=== PATIENT | female | born 1975 | race Caucasian/White ===

== ENCOUNTER 2020-06-16 20:10 | Emergency (ER) | payer MEDICAID, SELFPAY ==
--- NOTE | ~2020-06-16 | CT_ITS ---
EXAMINATION: CT brain wo con INDICATION: Headache COMPARISON: None TECHNIQUE: Standard unenhanced head CT. The dose-length product (DLP) was 756.67 mGy-cm. The mA was a djusted according to patient size. Iterative reconstruction technique was employed. FINDINGS: There is subarachnoid hemorrhage involving the basal cisterns and sylvian fissure. There is a questionable aneurysm at the tip of the basilar artery. No intracranial mass or infarct are seen. The ventricles are normal. There is no abnormal mass effect or midline shift. The vaughan-white matter d ifferentiation is normal. The orbits are normal. The paranasal sinuses, mastoids and calvarium are no rmal. IMPRESSION: 1. Acute subarachnoid hemorrhage. Recommend emergent neurosurgical evaluation and consider CTA. These findings and recommendations were discussed with Dr. Morgan Velazquez MD in the Emergency Dep artment at 2149 hours on 06/17/2020 by the [facility] Radiologist. Reviewed, dictated and finalized at location A. TIAN BLIND ASSEMBLER IMPRESSION: 1. Acute subarachnoid hemorrhage. Recommend emergent neurosurgical evaluation a nd consider CTA. These findings and recommendations were discussed with Elham Alva in the Emergency Department at 2149 hours on 06/17/2020 by the [facility] Radiolog ist.
[2020-06-16 20:29] VITALS: BP 148/110; PULSE 83; RESP 20; TEMP 36.5; O2SAT 96
[2020-06-16] MEDS: ONDANSETRON INJ 4 MG/2 ML VIAL IV PUSH ×2 (20:53→22:19)
--- NOTE | 2020-06-16 21:11 | ED.HA ---
HPI - Headache General Chief Complaint: Headache Stated Complaint: ambulance Time Seen by Provider: 06/16/20 21:11 Source: patient Mode of arrival: EMS Limitations: no limitations History of Present Illness HPI Narrative: 44-year-old woman comes to the ER by EMS today complaining of an occipital headache that started suddenly while she was having a bowel movement on the toilet. Patient states that she has never had a headache this bad. She denies falls, injuries, recent or past headaches or migraines, history of seizures, fever, cough, weakness, numbness, or tingling. Patient states she usually takes hypertension medication however she has been unable to get it filled since she lost her job a few months ago. MD elicited complaint: headache Pertinent past history: hypertension Onset (ago): hour(s) (1) Onset description: suddenly Location: occipital Severity: severe Quality & Timing: sharp Exacerbating factors: movement of head/neck Relieving factors: nothing Associated symptoms: nausea and vomiting Treatments prior to arrival: none Related Data Home Medications Medication Instructions Recorded Confirmed No Home Medications 06/16/20 06/16/20 Allergies Allergy/AdvReac Type Severity Reaction Status Date / Time No Known Allergies Allergy Verified 06/16/20 20:28 Review of Systems Constitutional: Constitutional: Denies chills, Denies fever(s) and Denies weakness Eyes: Eyes: Denies change in vision and Denies photophobia ENT: Denies dysphagia, Denies nasal congestion and Denies sore throat Cardiovascular: Cardiovascular: Denies chest pain and Denies radiating jaw, neck or arm pain Respiratory: Respiratory: Denies cough, Denies dyspnea and Denies wheezing Gastrointestinal: Gastrointestinal: Denies abdominal pain, Denies diarrhea, Reports nausea and Reports vomiting Genitourinary: Genitourinary: Denies hematuria and Denies dysuria Musculoskeletal: Musculoskeletal: Denies back pain, Denies arthralgias and Denies joint swelling Integumentary/Breasts: Skin/Breast: Denies pruritus, Denies erythema and Denies rash Neurologic: Denies vertigo, Denies dizziness and Denies syncope Hematologic/Lymphatic: Hematologic/Lymphatic: Denies easy bleeding and Denies easy bruising Allergic/Immunologic: Allergic/Immunologic: Denies lip swelling and Denies throat swelling [facility] Past Medical History Medical History (Updated 06/16/20 @ 22:29 by Morgan Velazquez MD) Hypertension Surgical History Surgical History (Updated 06/16/20 @ 21:37 by Morgan Velazquez MD) H/O knee surgery Social History Social History Smoking status: Former smoker Alcohol intake: never Substance use: never Living arrangements: alone Exam Const: Nutritional Appearance: obese Limitations: no limitations HENMT: Ears: external ears normal, TM's normal bilaterally and EAC's normal General nose exam: Normal nares present Face and sinus: normal facial exam Throat: posterior oropharynx normal and uvula midline Eyes: Conjunctivae: conjunctivae normal Pupils: Equal, round and reactive pupils present EOM: EOMs intact bilaterally Resp: Effort & Inspection: normal respiratory effort and not labored Auscultation: clear to auscultation bilaterally, no rales, no rhonchi and no wheezes Cardio: Rate: regular rate Rhythm: regular rhythm Heart sounds: no murmurs Skin: General skin exam: normal color, no jaundice and no pallor Rashes: no rashes Neuro: General: patient oriented x3, moves all extremities, no focal motor deficits and CN's II-XI intact bilaterally Speech: normal speech Gait exam (Neuro): Normal gait present Extrem: General: normal to inspection and no clubbing, cyanosis or edema Psych: Appearance: grossly normal Mental Status: mental status grossly normal Affect: normal affect Attitude: cooperative Thought content: Yes Normal thought content present Course
--- NOTE | 2020-06-16 21:16 | ECG_ITS ---
Measurements Intervals [place] Run Rate: 72 P: 56 GA: 160 QRS: 29 QRSD: 101 T: 21 QT: 373 QTc: 410 Interpretive Statements SINUS RHYTHM WITH SINUS ARRHYTHMIA MINIMAL Q WAVES- HIGH LATERAL LEADS BASELINE ARTIFACT- I, II, AVR, AVL, V6 BORDERLINE ECG Electronically Signed On 06-17-2020 12:28:08 JOB LITHOGRAPHER by Trino Hamm D.O.
[2020-06-16] MEDS: HYDROmorphone HCL INJ (*CRX) 2 MG/ML VIAL 1 MG IV PUSH (21:21)
--- NOTE | 2020-06-16 22:03 | PC.NURSE ---
ERP discussed radiology CT reading c pt. Pt. remains A&Ox3, and wanting to go to [facility] for care.
--- NOTE | 2020-06-16 22:33 | PC.NURSE ---
Call back from [facility] for report, awaiting call back c ICU bed info and for nue report. Pt. resting, VSS, remains A&Ox3.
[2020-06-16] MEDS: TRANEXAMIC ACID 1,000 MG/10 ML AMPUL 1000 MG IV PUSH (22:34)
[2020-06-16] MEDS: SODIUM CHLORIDE 0.9% IV 100 ML 400 ML (22:42)
[2020-06-16] MEDS: levETIRAcetam 1000MG/NACL100ML 1,000 MG/100 ML BAG 400 MG IVPB (22:43)
[2020-06-16 22:46] LABS: Basophils Absolute Auto 0.03 K/mm3 (0.00-0.10); Basophils Percent Auto 0.4 % (0.0-1.0); Eosinophils Percent Auto 1.2 % (1.0-6.0); Hematocrit 44.4 % (35.0-49.0); Hemoglobin 11.8 g/dL (12.0-15.0); Immature Granulocyte Absolute 0.05 K/mm3 (0.00-0.00); Immature Granulocyte Percent A 0.6 % (0.0-0.0); Immature Platelet Fraction Pct 8.9 % (1.0-7.0); Lymphocytes Absolute Auto 1.37 K/mm3 (1.10-4.50); Lymphocytes Percent Auto 16.1 % (18.0-42.0); Mean Corpuscular HGB Conc 26.6 g/dL (32.0-36.0); Mean Corpuscular Hemoglobin 20.7 pg (27.0-31.0); Mean Corpuscular Volume 77.8 fL (78.0-102.0); Mean Platelet Volume 11.4 fl (9.2-11.8); Monocytes Percent Auto 4.7 % (2.0-11.0); Neutrophils Absolute Auto 6.6 K/mm3 (1.7-7.2); Platelet Count Result 220 K/mm3 (150-420); Red Blood Count 5.71 M/mm3 (4.20-5.40); Red Cell Distribution Width 19.2 % (11.6-14.4); White Blood Count 8.5 K/mm3 (4.8-10.8)
[2020-06-16 22:58] LABS: INR 0.9; Partial Thromboplastin Time 28.7 SEC (23.90-30.70); Prothrombin Time 10.4 Seconds (9.50-12.10)
[2020-06-16 23:01] LABS: Alanine Aminotransferase 29 U/L (14-59); Albumin Level 3.4 g/dL (3.4-5.0); Alkaline Phosphatase 127 U/L (46-116); Anion Gap 6 mmol/L (8-16); Aspartate Amino Transferase 28 U/L (15-37); Bilirubin,Total 0.4 mg/dL (0.00-1.00); Blood Urea Nitrogen 14 mg/dL (7-18); CRP 4.3 mg/dL (0.0-0.9); Calcium 8.7 mg/dL (8.5-10.1); Carbon Dioxide 31 mmol/L (21-32); Chloride 100 mmol/L (98-108); Estimated CRCL calculation 127 ml/min; Estimated Glomerular Filt Rate > 60; Glucose 152 mg/dL (70-99); Osmolality Calculated 287 mOsm/kg (285-295); Potassium 3.5 mmol/L (3.5-5.1); Sodium 137 mmol/L (136-145); Total Protein 8.2 g/dL (6.4-8.2); Troponin I 8.1 ng/L (0.00-60.4)
[2020-06-16 23:22] LABS: SARS-CoV-2 Ag Negative (Negative)
[2020-06-16 23:38] VITALS: BP 160/74; PULSE 73; RESP 18; O2SAT 97
[2020-06-16 23:49] VITALS: BP 160/89; PULSE 73; RESP 20; TEMP 36.5; O2SAT 98
--- NOTE | 2020-06-16 23:58 | PC.NURSE ---
Report given to Sam for transfer, call paged to [facility] for transfer.
[2020-06-17] MEDS: HYDROmorphone HCL INJ (*CRX) 2 MG/ML VIAL 1 MG IV PUSH (00:08)
== END 2020-06-17 00:26 | disposition short-term general hospital (02) ==
PROVIDERS: Emergency Provider Emergency Medicine
DX: I60.9 Nontraumatic subarachnoid hemorrhage, unspecified (principal); I10 Essential (primary) hypertension
CPT/HCPCS: 36415; 70450; 80053; 84484; 85025; 85055; 85610; 85730; 86140; 87426; 93005; 96374; 96375; 96376; 99285; C9803; J1170; J1953; J2405

== ENCOUNTER 2022-02-11 16:58 | Emergency (ER) | payer OTHER, SELFPAY ==
--- NOTE | ~2022-02-11 | XR_ITS ---
EXAM: XR wrist RT min 3V DATE: 02/11/2022 17:26 HISTORY: fall pain @ all over wrist . COMPARISON: None available. FINDINGS: Normal mineralization. Comminuted, predominantly transverse fracture of the distal right r adius, with mild posterior angulation. Comminuted ulnar styloid fracture. No lytic or blastic lesion. Joint spaces and physes are maintained. No erosion or periosteal change. Soft tissue swelling about the wrist. IMPRESSION: Mildly comminuted fractures of the distal right radius with mild posterior angulation. Co mminuted right ulnar styloid fracture. Reviewed, dictated and finalized at location K. IMPRESSION: Mildly comminuted fractures of the distal right radius with mild po sterior angulation. Comminuted right ulnar styloid fracture.
[2022-02-11 17:20] VITALS: BP 159/79; PULSE 73; RESP 22; TEMP 36.2; O2SAT 96
[2022-02-11] MEDS: IBUPROFEN 400 MG TABLET 800 MG PO (17:50)
--- NOTE | 2022-02-11 17:53 | PC.NURSE ---
On 02/11/22, the student, [ diane melvin ], provided care and completed [facility] documentation on this patient. I have reviewed the student's documentation and agree with the findings.
--- NOTE | 2022-02-11 18:00 | PC.NURSE ---
On 02/11/22, the student, [ diane melvin], provided care and completed [facility] documentation on this patient. I have reviewed the student's documentation and agree with the findings.
--- NOTE | 2022-02-11 18:59 | ED.UPPEXIN ---
HPI - Extremity Injury (Upper) General Chief Complaint: Extremity Injury, Upper Stated Complaint: right wrist pain Time Seen by Provider: 02/11/22 17:02 Source: patient and RN notes reviewed Mode of arrival: wheelchair Limitations: no limitations History of Present Illness complaint: injury to: right and wrist Onset (ago): hour(s) (1) Other injuries: none Place: outdoors Severity: moderate Severity scale (1-10): 7 Relieving factors: immobilization Exacerbating factors: movement of extremity Context: fall Associated symptoms: denies other symptoms Treatments prior to arrival: bandage Related Data Allergies Allergy/AdvReac Type Severity Reaction Status Date / Time No Known Allergies Allergy Verified 02/11/22 17:56 Review of Systems Review of Systems: All systems reviewed & are unremarkable except as noted in HPI and below Constitutional: Constitutional: Reports no additional constitutional complaints Eyes: Eyes: Reports no additional eye complaints ENT: Reports system reviewed and no additional complaints, except as documented Cardiovascular: Cardiovascular: Reports no additional cardiovascular complaints Respiratory: Respiratory: Reports no additional respiratory complaints Gastrointestinal: Gastrointestinal: Reports no additional gastrointestinal complaints Genitourinary: Genitourinary: Reports no additional female genitourinary complaints Musculoskeletal: Musculoskeletal: Reports arthralgias Integumentary/Breasts: Skin/Breast: Reports system reviewed and no additional complaints, except as docu Neurologic: Reports system reviewed and no additional complaints, except as documented Psychiatric: Psychiatric: Reports no additional psychiatric complaints Endocrine: Endocrine: Reports no additional endocrine complaints Hematologic/Lymphatic: Hematologic/Lymphatic: Reports no additional hematologic/lymphatic complaints Allergic/Immunologic: Allergic/Immunologic: Reports no additional allergic/immunologic complaints PMFSH Past Medical History Medical History Fracture of wrist Hypertension Surgical History Surgical History (Updated 06/16/20 @ 21:37 by Morgan Velazquez MD) H/O knee surgery Social History Social History Smoking status: Former smoker Alcohol intake: never Substance use: never Exam Const: General: no acute distress Nutritional Appearance: well nourished Orientation/consciousness: patient oriented x3 Limitations: no limitations HENMT: Head: normal to inspection Ears: external ears normal, TM's normal bilaterally and EAC's normal General nose exam: Normal external nose present and Normal nares present Face and sinus: normal facial exam and sinuses nontender Mouth: Yes Normal oral and palatal mucosa present and Yes moist mucous membranes Teeth and gingiva: dentition normal Throat: posterior oropharynx normal Eyes: Conjunctivae: conjunctivae normal Pupils: Equal, round and reactive pupils present EOM: EOMs intact bilaterally Neck: Neck: normal visual inspection, no lymphadenopathy and no meningeal signs Chest: Chest palpation & inspection: normal inspection of the chest Resp: Effort & Inspection: normal respiratory effort Auscultation: clear to auscultation bilaterally Cardio: Rate: regular rate Rhythm: regular rhythm GI: GI Palp: Yes Soft to palpation and No Tenderness to palpation present (GI) Auscultation: normal bowel sounds : General: Yes bladder normal to palpation and Yes no CVA tenderness Bimanual exam- vagina & uterus: bladder normal to palpation Back/Spine/Pelvis: Back: no CVA tenderness Skin: General skin exam: normal color Rashes: no rashes Wounds: no wounds Neuro: General: patient oriented x3, moves all extremities, no meningeal signs, no focal motor deficits and CN's II-XI intact bilaterally Cranial nerves: Yes Equal, round and
[2022-02-11 19:17] VITALS: BP 156/80; PULSE 73; RESP 20; O2SAT 98
--- NOTE | 2022-02-11 19:17 | PC.NURSE ---
pt refused MS states the pain is gone with motrin and splint splint applied without difficult
[2022-02-11 19:18] VITALS: TEMP 36.6
== END 2022-02-11 19:26 | disposition home or self-care (01) ==
PROVIDERS: Emergency Provider Emergency Medicine
DX: S62.101A Fracture of unspecified carpal bone, right wrist, initial encounter for closed fracture (principal); W19.XXXA Unspecified fall, initial encounter
CPT/HCPCS: 29125; 73110; 99284; A4565; A9270

== ENCOUNTER 2024-12-26 14:30 | Emergency (ER) | payer OTHER, SELFPAY ==
[2024-12-26] VITALS (24 sets, daily range): BP systolic 123–244; BP diastolic 81–210; PULSE 68–134; RESP 18–26; TEMP 36.7; O2SAT 90–98
--- NOTE | ~2024-12-26 | XR_ITS ---
EXAMINATION: XR chest 1V portable Exam Date/Time: 12/26/2024 14:50 CDT HISTORY: Shortness of breath Comparison: None. RESULT: Lines, tubes, and devices: None. Lungs and pleura: No focal consolidation, pleural effusion, or pneumothorax. Mild diffuse reticular opacities. Cardiomediastinal silhouette: Increased cardiothoracic ratio. Rounded morphology of the heart. Possi ble air-fluid level over the central mediastinum. Other: No acute osseous or upper abdominal finding. IMPRESSION: Pericardial effusion versus cardiomegaly. Possible hiatal hernia. Mild interstitial edema. Reviewed, dictated and finalized at location K. IMPRESSION: Pericardial effusion versus cardiomegaly. Possible hiatal hernia. Mild intersti tial edema.
--- OUTSIDE RECORDS SUMMARY | 2024-12-26 14:34 | XMS_ITS | Continuity of Care Document ---
Author Organization [facility] Address [address] [id number] [address] Phone Care Team Providers [employer] Controls Engineer Name Role Phone Coordinator, Care Unavailable Unavailable Procedures Procedure Date Community Health Worker Patient Face To Face Advance Directives Directive Yes / No Effective Date File Name No Information Encounters Encounter Description Practice Location Reason(s) For Visit Diagnoses Date Provider Providers Copied on Encounter [facility], [id number], [id number], [place] tel:[phone] Family Medicine F1 No Information 0 0 Coordinator Care. [address], [place], [id number], [place]. tel:[phone] [facility], [id number], [id number], [place] tel:[phone] Family Medicine F1 Extreme povertyInsufficie nt Social Insurance or Welfare Support 201 9 Coordinator Care. [address], [place], [id number], [place]. tel:[phone] Referring Provider: Néstor watson, [address] [place], [address] . tel:[phone] Family History Family Member Type Diagnosis Age At Onset No Information Payers Payer name Insurance type Covered republican ID Authoriza tion(s) No Information Social History Type Description Quantity Date Captured Comments Sex Female Smoking Status No Information Chief Complaint And Reason For Visit No Information Reason For Referral Reason For Referral No Information Plan Of Treatment Date Type Action Status Referral Ordered: Referrals: Location: [facility] ordered History Of Present Illness Encounter Date Complaint History Of Prese nt Illness No Information Functional Status Date Functional Assessmen t No Information Instructions Date Instruction Additional Infor mation No Information Assessments Type Assessment Date No Information Patient Care Teams Name Effective Dates (start - stop) Status Members No Information
--- OUTSIDE RECORDS SUMMARY | 2024-12-26 14:34 | XMS_ITS | Clinical Summary ---
Author Organization [facility] Address [address] [place] [id number] Care Team Providers Care Head Cook Name Role Phone None, Provider MD Primary Care Provider Unavaila ble Allergies No known active allergies Social History Tobacco Use Types Packs/Day Years Used Date Smoking Tobacco: Never Assessed Comments Unknown Sex and Gender Information Value Date Recorded Sex Assigned at Female 08/15/2024 3:34 PM HEAD ESTHETICIAN Legal Sex Female 1:55 PM HEAD ESTHETICIAN Gender Identity Not on file Sexual Orientation Not on file Last Filed Vital Signs Vital Sign Reading Time Taken Comments Blood Pressure 140/109 08/15/2024 2:00 PM HEAD ESTHETICIAN Pulse 61 08/15/2024 2:00 PM HEAD ESTHETICIAN Temperature 36.8 C (98.2 F) 08/15/2024 2:00 PM HEAD ESTHETICIAN Respiratory Rate 18 08/15/2024 2:00 PM HEAD ESTHETICIAN Oxygen Saturation 94% 08/15/2024 2:00 PM HEAD ESTHETICIAN Inhaled Oxygen Concentration - - Weight 165.6 kg (365 lb) 08/15/2024 2:00 PM HEAD ESTHETICIAN Height 175.3 cm (5' 9) 08/15/2024 2:00 PM HEAD ESTHETICIAN Body Mass Index 53.9 08/15/2024 2:00 PM HEAD ESTHETICIAN Plan of Treatment Health Maintenance Due Date Last Done Comments Cervical Cancer Screening Pa p Smear (Age 30 to 64) Every 3 Years 1974 Colorectal Cancer Screening Colonoscopy (10 Years) 1974 Annual Physical 1977 Hepatitis C 1992 DTaP, Tdap and Td Vaccines ( 1 - Tdap) 1993 Hepatitis B Vaccines (1 of 3 - 19+ 3-dose series) 1993 Cervical Cancer Screening Pa p with HPV Testing (Age 30 to 64) Every 5 Years 2004 Cervical Cancer Screening with HPV 2004 Mammogram Screening 2014 COVID-19 Vaccine (1 - 2023-2 5 season) 2024 Pneumococcal Vaccine: 50+ Ye ars (1 of 1 - PCV) 2024 Zoster Vaccines (1 of 2) 2024 Meningococcal B Vaccine Aged Out No l onger eligible based on patient's age to complete this topic Meningococcal Vaccine Aged Out No handy denzel eligible based on patient's age to complete this topic RSV Immunizations Under 20 Months Aged Out No longer eligible based on patient's age to complete this topic Insurance [address] [address] Care Teams Head Cook Relationship Specialty Start Date End Date None, Provider, PCP - General UNKNOWN PHYSICIAN SPECIALTY 08/15/24
--- NOTE | 2024-12-26 14:36 | ED_ITS ---
HPI - General Adult General Chief complaint: Abdominal Pain Stated complaint: bloated Time Seen by Provider: 12/26/24 14:36 Source: patient and family Mode of arrival: ambulatory Limitations: no limitations History of Present Illness HPI narrative: 49 years old white female came to the ED by private car with family member complaining of feeling like her belly is swollen, for 1 week then started having trouble breathing with exertion for the last 3 days. She denies any fever, chills, nausea, vomiting, chest pain, back pain or headache. Last time was seen by a physician over 5 years ago, patient does not take medicine at home, does not smoke or drink or use drugs. 188 kg Related Data Home Medications ?Medication ?Instructions ?Recorded ?Confirmed ?Last Taken ?Type No Home Medications 12/26/24 12/26/24 Unknown History Allergies Allergy/AdvReac Type Severity Reaction Status Date / Time No Known Allergies Allergy Verified 12/26/24 14:42 Review of Systems 2 Review of Systems: All systems reviewed & are unremarkable except as noted in HPI and below PMFSH Past Medical History Medical History Fracture of wrist Hypertension Surgical History Surgical History H/O knee surgery Social History Social History Smoking status: Former smoker Alcohol intake: never Substance use: never Living arrangements: alone Exam 2 Narrative: General appearance: Well-developed, well-nourished Skin: Normal color edematous skin of the abdomen below the level of the umbilicus, peau d,orange, 1+ EDEMA LOWER EXTREMITY BILATERALLY Head: Normocephalic, nontraumatic Eyes: Clear conjunctiva ENT: Oropharynx normal, ears normal, nose normal Neck: Supple, nontender Chest and respiratory: Airway patent, no respiratory distress, no accessory muscle use Heart: IRREGULAR IRREGULARITY, TACHYCARDIA Abdomen: Soft, nontender, no organomegaly, quiet bowel sounds Vascular: Normal peripheral pulses, normal capillary refill. Musculoskeletal: Normal range of motion, nontender back Neurologic: Alert and oriented ?3, STAFF RN is normal as tested, no gross motor deficit Course Vital Signs Vital signs: Vital Signs Temperature 36.7 C 12/26/24 14:31 Pulse Rate 68 12/26/24 14:31 Respiratory Rate 22 H 12/26/24 14:31 Blood Pressure 158/129 H 12/26/24 14:31 Pulse Oximetry 95 12/26/24 14:31 Oxygen Delivery Room Air 12/26/24 14:31 Temperature 36.7 C 12/26/24 14:31 Pulse Rate 123 H 12/26/24 17:18 Respiratory Rate 20 12/26/24 16:30 Blood Pressure 123/112 H 12/26/24 17:18 Pulse Oximetry 97 12/26/24 16:30 Oxygen Delivery Nasal Cannula 12/26/24 16:30 Oxygen Flow Rate 2 12/26/24 16:30 Medical Decision Making MDM Narrative Medical decision making narrative: PATIENT CAME TO THE ED WITH SHORTNESS OF BREATH, SWELLING ABDOMEN VITAL SIGNS SHOWING BLOOD PRESSURE 158/129, RESPIRATORY RATE 22, HEART RATE IS 130 , OXYGENATION ON 2 L 95% PHYSICAL EXAMINATION SHOWING MORBIDLY OBESE PATIENT, TACHYCARDIA IRREGULAR IRREGULARITY, TRACE EDEMA LOWER EXTREMITY BILATERALLY, LOWER ABDOMINAL SKIN EDEMA BLOOD WORKUP TODAY INCLUDES CBC, CMP, COAGS, TROPONIN, PRO BNP SHOWED PRO BMP 2800, AST 99, ALT 55, CALCIUM 8.0 ABG ON ROOM AIR SHOWED OXYGEN SATURATION OF 83.4 CHEST X-RAY SHOWED INTERSTITIAL PULMONARY EDEMA, CARDIOMEGALY EKG ON ARRIVAL SHOWED AFIB WITH RVR CARDIZEM IV BOLUS AND DRIP STARTED LASIX 60 MG IV GIVEN LOVENOX 150 MG SUBQ GIVEN DIAGNOSIS AFIB WITH RVR, CHF TRANSFERRED TO [facility] DISCUSSED WITH THE HOSPITALIST DR. ZUNIGA Differential Diagnosis Differential Diagnosis: ABOVE Vital Signs Vital Signs: Vital Signs Temperature 36.7 C 12/26/24 14:31 Pulse Rate 68 12/26/24 14:31 Respiratory Rate 22 H 12/26/24 14:31 Blood Pressure 158/129 H 12/26/24 14:31 Pulse Oximetry 95 12/26/24 14:31 Oxygen Delivery Room Air 12/26/24 14:31 Temperature 36.7 C 12/26/24 14:31 Pulse Rate 123 H 12/26/24 17:18 Respiratory Rate 20 12/26/24 16:30 Blood Pressure 123/112 H 12/26/24 17:18 Pulse Oximetry 97 12/26/24 16:30 Oxygen Delivery Nasal Cannula 12/26/24 16:30 Oxygen Flow Rate 2 12/26/24 16:30 Lab Data 12/26/24 14:57 12/26/24 14:57 Labs: Lab Results 12/26/24 12/26/24 12/26/24 Range/Units 14:49 14:57 15:33 WBC 7.4 (4.8-10.8) K/mm3 RBC 5.59 H (4.20-5.40) M/mm3 Hgb 11.3 L (12.0-15.0) g/dL Hct 44.3 (35.0-49.0) % MCV 79.2 (78.0-102.0) fL MCH 20.2 L (27.0-31.0) pg MCHC 25.5 L (32-36) g/dL RDW 19.7 H (11.6-14.4) % Plt Count 223 (150-420) K/mm3 MPV Not Reportable Immature Gran % (Auto) 0.4 H (0.0-0.0) % Neut % (Auto) 73.5 H (50.0-70.0) % Lymph % (Auto) 16.1 L (18.0-42.0) % Stone % (Auto) 8.2 (2.0-11.0) % Eos % (Auto) 0.9 L (1.0-6.0) % Baso % (Auto) 0.9 (0.0-1.0) % Lymph # (Auto) 1.20 (1.10-4.50) K/mm3 Stone # (Auto) 0.61 (0.10-0.90) K/mm3 Eos # (Auto) 0.07 (0.02-0.50) K/mm3 Baso # (Auto) 0.07 (0.00-0.10) K/mm3 Abs Immat Gran (auto) 0.03 H (0.00-0.00) K/mm3 Absolute Neuts (auto) 5.46 (1.70-7.20) K/mm3 Absolute Nucleated RBC 0.09 H (0.00-0.00) K/mm3 Nucleated RBC % 1.2 H (0-0.0) % % Immature Plt Fraction 9.3 H (1.0-7.0) % PT 12.6 H (9.50-12.1) Seconds INR 1.2 APTT 21.2 L (23.9-30.70) Sec Sodium 139 (137-145) mmol/L Potassium 4.0 (3.4-5.0) mmol/L Chloride 101 (98-107) mmol/L Carbon Dioxide 34 H (22-30) mmol/L Anion Gap 4 (4-12) mmol/L BUN 12 (7-17) mg/dL Creatinine 0.92 (0.7-1.0) mg/dL Estim Creat Clear Calc 117 ml/min Estimated GFR > 60 (59 - ) Glucose 105 (65-110) mg/dL Calculated Osmolality 287 (285-295) mOsm/kg Calcium 8.0 L (8.4-10.2) mg/dL Total Bilirubin 1.4 H (0.2-1.3) mg/dL AST 99 H (14-36) U/L ALT 55 H (6-35) U/L Alkaline Phosphatase 100 (38-126) U/L Troponin I < 0.012 (0.000-0.034) ng/mL NT-Pro-B Natriuret Pep 2800 H (19.9-100) pg/mL Total Protein 6.8 (6.3-8.2) g/dL Albumin 3.6 (3.5-5.1) g/dL Lipase 44 (23-300) U/L TSH 2.980 (0.465-4.680) uIU/mL Urine Color Yellow (Yellow) Urine Appearance Clear (Clear) Urine pH 6.0 (5.0-8.0) Ur Specific Ute 1.020 (1.010-1.020) Urine Protein 2+ H (Negative) Urine Glucose (UA) Negative (Negative) Urine Ketones Negative (Negative) Ur Blood (Man) Trace-intact H (Negative) Urine Nitrate Negative (Negative) Urine Bilirubin Negative (Negative) Urine Urobilinogen 4.0 H (0.2-1.0) mg/dL Leukocyte Esterase Rfl Trace H (Negative) JOAQUINA/UL Urine RBC 0-2 (0-2) /hpf Urine WBC 4-6 H (0-3) /hpf Ur Squamous Epith Cells Many H (Few) /hpf Urine Bacteria 3+ H (None) /hpf Hyaline Casts 1-2 (None) /lpf Urine Test Negative ABG Data ABG results: 12/26/24 14:59 Puncture Site Right radial ABG pH 7.37 ABG pCO2 53.8 H ABG pO2 51.8 L ABG HCO3 30.5 H ABG O2 Saturation 83.4 L ABG Base Excess 4.1 H Oxyhemoglobin 81.8 L O2 Delivery Device Room air O2 Liters/Min Not Reportable Imaging Data Radiologist's impression: Impressions Chest X-Ray 12/26/24 15:07 IMPRESSION: Pericardial effusion versus cardiomegaly. Possible hiatal hernia. Mild interstitial edema. ECG Data EKG #1: Attestation: I personally reviewed and interpreted this ECG as follows: ECG completion date: 12/26/24 Interpretation: AFIB WITH RVR AT 126 MINUTE VOLTAGE IN PRECORDIAL LEADS ABNORMAL RHYTHM EKG, NO OLD EKG AVAILABLE FOR COMPARISON Critical Care Time Critical Care Time Critical Care Time: Yes Total Critical Care Time: 30 Discharge Plan Discharge Clinical Impression: Atrial fibrillation with rapid ventricular response, CHF (congestive heart failure) Patient Disposition: Acute Care Hospital Condition: Stable Patient Language: Vietnamese Prescriptions: No Action No Home Medications Follow-up/Referrals: UNKNOWN,DOCTOR [Primary Care Provider] -
--- NOTE | 2024-12-26 14:47 | ECG_ITS ---
Test Date: 2024-12-26 15:17:50 Measurements Intervals Downs Rate: 126 P: 0 UT: 0 QRS: 78 QRSD: 89 T: 33 QT: 288 QTc: 418 Interpretive Statements ATRIAL FIBRILLATION WITH RAPID VENTRICULAR RESPONSE LOW QRS VOLTAGE IN PRECORDIAL LEADS [QRS DEFLECTION < 1.0 mV IN CHEST LEADS] POOR R-WAVE PROGRESSION ABNORMAL RHYTHM ECG No previous ECG available for comparison Electronically Signed On 12-27-2024 10:22:36 CDT by Roge Perea M.D.
[2024-12-26 15:04] LABS: HCO3 ABG 30.5 mmol/L (23-29); Oxygen Saturation ABG 83.4 % (95-97); PCO2 ABG 53.8 mmHg (35-45); PO2 ABG 51.8 mmHg (80-90)
[2024-12-26 15:05] LABS: Modified Allen's Test Pass; Site Drawn RIGHT RADIAL
--- OUTSIDE RECORDS SUMMARY | 2024-12-26 15:18 | XMS_ITS | Clinical Summary ---
Author Organization [facility] Address [address] [place] [address] Care Team Providers Care Cargo Service Agent Name Role Phone None, Provider MD Primary Care Provider Unavaila ble Allergies No known active allergies Social History Tobacco Use Types Packs/Day Years Used Date Smoking Tobacco: Never Assessed Comments Unknown Sex and Gender Information Value Date Recorded Sex Assigned at Female 08/15/2024 3:34 PM [employer] Legal Sex Female 1:55 PM [employer] Gender Identity Not on file Sexual Orientation Not on file Last Filed Vital Signs Vital Sign Reading Time Taken Comments Blood Pressure 140/109 08/15/2024 2:00 PM [employer] Pulse 61 08/15/2024 2:00 PM [employer] Temperature 36.8 C (98.2 F) 08/15/2024 2:00 PM [employer] Respiratory Rate 18 08/15/2024 2:00 PM [employer] Oxygen Saturation 94% 08/15/2024 2:00 PM [employer] Inhaled Oxygen Concentration - - Weight 165.6 kg (365 lb) 08/15/2024 2:00 PM [employer] Height 175.3 cm (5' 9) 08/15/2024 2:00 PM [employer] Body Mass Index 53.9 08/15/2024 2:00 PM [employer] Plan of Treatment Health Maintenance Due Date [...] patient's age to complete this topic Insurance [address] [address] [place] [id number] Care Teams Cargo Service Agent Relationship Specialty Start Date End Date None, Provider, PCP - General UNKNOWN PHYSICIAN SPECIALTY 08/15/24
--- OUTSIDE RECORDS SUMMARY | 2024-12-26 15:18 | XMS_ITS | Continuity of Care Document ---
Author Organization [facility] Address [id number] [address] Phone Care Team Providers Care Manager Adult Name Role Phone Coordinator, Care Unavailable Unavailable Procedures Procedure Date Community Health Worker Patient Face To Face Advance Directives Directive Yes / No Effective Date File Name No Information Encounters Encounter Description Practice Location Reason(s) For Visit Diagnoses Date Provider Providers Copied on Encounter [facility], [id number], [id number], [place] tel:[phone] Family Medicine F1 No Information 0 0 Coordinator Care. [address], [place], [id number], [place]. tel:[phone] [facility], [id number] [id number], [place] tel:[phone] Family Medicine F1 Extreme povertyInsufficie nt Social Insurance or Welfare Support 201 9 Coordinator Care. [address], [place], [id number], [place]. tel:[phone] Referring Provider: Néstor watson, [address] [place], [address] . tel:[phone] Family History Family Member Type Diagnosis Age At Onset No Information Payers Payer name Insurance type Covered green party ID Authoriza tion(s) No Information Social History Type Description Quantity Date Captured Comments Sex Female Smoking Status No Information Chief Complaint And Reason For Visit No Information Reason For Referral Reason For Referral No Information Plan Of Treatment Date Type Action Status Referral Ordered: Referrals: Location: [facility] ordered History Of Present Illness Encounter Date Complaint History Of Prese nt Illness No Information Functional Status Date Functional Assessmen t No Information Instructions Date Instruction Additional Infor mation No Information Assessments Type Assessment Date No Information Patient Care Teams Name Effective Dates (start - stop) Status Members No Information
[2024-12-26 15:19] LABS: INR 1.2; Partial Thromboplastin Time 21.2 Sec (23.9-30.70); Prothrombin Time 12.6 Seconds (9.50-12.1)
[2024-12-26 15:35] LABS: Hematocrit 44.3 % (35.0-49.0); Hemoglobin 11.3 g/dL (12.0-15.0); Immature Granulocyte Percent A 0.4 % (0.0-0.0); Immature Platelet Fraction Pct 9.3 % (1.0-7.0); Lymphocytes Absolute Auto 1.20 K/mm3 (1.10-4.50); Mean Corpuscular HGB Conc 25.5 g/dL (32-36); Mean Corpuscular Hemoglobin 20.2 pg (27.0-31.0); Mean Corpuscular Volume 79.2 fL (78.0-102.0); Nucleated Red Blood Cells Absolute Auto 0.09 K/mm3 (0.00-0.00); Nucleated Red Blood Cells Perc 1.2 % (0-0.0); Platelet Count Result 223 K/mm3 (150-420); Red Blood Count 5.59 M/mm3 (4.20-5.40); White Blood Count 7.4 K/mm3 (4.8-10.8)
[2024-12-26 15:41] LABS: Alanine Aminotransferase 55 U/L (6-35); Albumin Level 3.6 g/dL (3.5-5.1); Alkaline Phosphatase 100 U/L (38-126); Anion Gap 4 mmol/L (4-12); Aspartate Amino Transferase 99 U/L (14-36); Bilirubin,Total 1.4 mg/dL (0.2-1.3); Blood Urea Nitrogen 12 mg/dL (7-17); Calcium 8.0 mg/dL (8.4-10.2); Carbon Dioxide 34 mmol/L (22-30); Chloride 101 mmol/L (98-107); Estimated CRCL calculation 117 ml/min; Estimated Glomerular Filt Rate > 60; Glucose 105 mg/dL (65-110); Lipase 44 U/L (23-300); Osmolality Calculated 287 mOsm/kg (285-295); Potassium 4.0 mmol/L (3.4-5.0); Sodium 139 mmol/L (137-145); Total Protein 6.8 g/dL (6.3-8.2)
[2024-12-26 15:51] LABS: NT Pro B Type Natriuretic Pept 2800 pg/mL (19.9-100)
[2024-12-26 15:54] LABS: Troponin I < 0.012 ng/mL (0.000-0.034)
[2024-12-26 15:56] LABS: Add Urine Microscopic? YES; Appearance Urine Clear (Clear); Glucose Urine UA Negative (Negative); Leukocyte Esterase Ur Trace LEU/UL (Negative); Nitrate Urine Negative (Negative); Specific Grav Ur 1.020 (1.010-1.020)
[2024-12-26 15:59] LABS: Pregnancy On Board Control Positive
[2024-12-26] MEDS: ENOXAPARIN 120 MG, ENOXAPARIN 30 MG 150 MG SUB-Q (16:14)
[2024-12-26] MEDS: dilTIAZem 100 MG/100 ML 100 MG/100 ML BAG IV CONT (17:18)
[2024-12-26 17:59] LABS: Thyroid Stimulating Hormone 2.980 uIU/mL (0.465-4.680)
[2024-12-26] MEDS: FUROSEMIDE INJ 40 MG/4 ML VIAL 60 MG IV PUSH (18:35)
--- NOTE | 2024-12-26 19:15 | PC.NURSE ---
patient awake, alert and up to bathroom via wheelchair per wireless cellular technician. patient report received from VIET Miller for continuation of care on weight shifter. patient awaiting EMS transport to inpatient transfer facility [facility].
--- NOTE | 2024-12-26 19:45 | PC.NURSE ---
pt to bathroom via wheelchair per hvac service technician. given sandwich and fruit for dinner per ERP okay.
--- NOTE | 2024-12-29 12:56 | PC.NURSE ---
preliminary blood cultures x2 reviewed. no growth to date
--- NOTE | 2024-12-30 12:47 | PC.NURSE ---
preliminary blood cultures x2 reviewed. no growth to date
--- NOTE | 2024-12-31 12:09 | PC.NURSE ---
PRELIMINARY BLOOD CULTURE REPORT; NO GROWTH IN 48 HOURS.
--- NOTE | 2025-01-02 15:49 | PC.NURSE ---
final blood culture results x2: no growth after 5 days
--- NOTE | 2025-01-03 12:45 | PC.NURSE ---
final blood cultures x2 reviewed. no growth after 5 days.
== END 2024-12-26 21:02 | disposition short-term general hospital (02) ==
PROVIDERS: Emergency Provider Emergency Medicine
DX: I48.20 Chronic atrial fibrillation, unspecified (principal); I11.0 Hypertensive heart disease with heart failure; I50.9 Heart failure, unspecified; Z87.891 Personal history of nicotine dependence
CPT/HCPCS: 36415; 36600; 71045; 80053; 81001; 81025; 82805; 83690; 83880; 84443; 84484; 85025; 85055; 85610; 85730; 93005; 96365; 96366; 96372; 96375; 99285; J1163; J1650; J1938

== ENCOUNTER 2025-01-11 11:56 | Outpatient (CLI) | payer OTHER, SELFPAY ==
--- OUTSIDE RECORDS SUMMARY | 2025-01-11 12:00 | XMS_ITS | Clinical Summary ---
Author Organization [facility] [employer] Address [address] [facility] Attn: [place] [address] Care Team Providers Care Head Piece Assembler Name Role Phone Unavailable Primary Care Provider Unavailabl e Allergies No known active allergies Medications dilTIAZem (CARDIZEM CD, CARTIA XT) 240 mg Controlled Delivery 24 hour capsule Starting 01/03: Take 1 Capsule (240 mg) by mouth daily. 30 Capsule 01/02/2025 3:30 PM CDT 01/03/2025 Active furosemide (LASIX) 40 mg tablet Starting 01/03: Take 1 Tablet (40 mg) by mouth daily. 30 Tablet 01/02/2025 3:30 PM CDT 01/03/2025 Active metoprolol tartrate (LOPRESSOR) 100 mg tablet Starting 01/03: Take 1 Tablet (100 mg) by mouth 2 times daily. 60 Tablet 01/02/2025 3:30 PM CDT 01/03/2025 Active apixaban (ELIQUIS) 5 mg tablet Take 1 Tablet (5 mg) by mouth 2 times daily. 60 Tablet 01/02/2025 3:30 PM CDT 01/02/2025 Active Active Problems Problem Noted Date Diagnosed Date Nonsustained ventricular tachycardia 12/30/2024 Acute heart failure with pre served ejection fraction (HFpEF) 12/28/2024 Acute CHF 12/27/2024 Acute respiratory failure with hypoxia Atrial fibrillation with rapid ventricular respo nse 12/27/2024 Morbid obesity 12/27/2024 Hematuria 07/11/2014 Pelvic pain in female 07/11/2014 Foreign body in bladder 07/11/2014 Encounters Date Type Department Care Team Description 01/03/2025 External Device Data [facility]STRACTION Provider, Abstract 01/03/2025 External Device Data [facility] Provider, Abstract 01/03/2025 External Device Data [facility] Provider, Abstract 12/26/2024 10:30 PM CDT - 01/03/2025 6:33 PM CDT Hospital Encounter [facility] [address] [place] [id number] Everardo Matthews MD Abduljaber, MD Kyler Chandra Aaron A, MD Hoos, Cullen, MD Atrial fibrillation with rapid ventricular response (CMS/HCC) Discharge Disposition: Home or Self Care 12/26/2024 Travel from Last 3 Months Social History Tobacco Use Types Packs/Day Years Used Date Smoking Tobacco: Former Cigarettes Q uit: 01/21/2013 Alcohol Use Standard Drinks/Week Comments No 0 (1 standard drink = 0.6 oz pur e alcohol) Comments Unknown Sex and Gender Information Value Date Recorded Sex Assigned at Not on file 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 Gender Identity Not on file Sexual Orientation Not on file Last Filed Vital Signs Vital Sign Reading Time Taken Comments Blood Pressure 159/94 01/03/2025 5:43 PM CDT Pulse 83 01/03/2025 12:23 PM CDT Temperature 36.6 C (97.9 F) 01/03/2025 12:23 PM CDT Respiratory Rate 24 01/03/2025 12:2 3 PM CDT Oxygen Saturation 100% 01/03/2025 12: 23 PM CDT Inhaled Oxygen Concentration - - Weight 164.8 kg (363 lb 6.4 oz) 01/02/2025 6:39 AM CDT Height 175.3 cm (5' 9) 12/26/2024 10:5 4 PM CDT Body Mass Index 53.66 12/26/2024 10:54 PM CDT Plan of Treatment Health Maintenance Due Date Last Done Comments DTAP/TDAP/TD VACCINES (1 - Tdap) 1993 HEPATITIS B VACCINES (1 of 3 - 19+ 3-dose series) 08/13 HPV/Cotest (21-29) 08/29/1995 CERVICAL CANCER SCREENING 2004 HPV/Cotest (30-65) 2004 PAP SMEAR 2004 BREAST CANCER SCREENING 2014 COLORECTAL SCREENING 08/29/2019 Colorectal Cancer Screening 08/29/2019 FIT-DNA Q 3 years 08/29/2019 FIT/FOBT Q 1 year 08/29/2019 Flex Sig/CT Colonography Q 5 years 08/29/2019 ZOSTER VACCINE (1 of 2) 2024 INFLUENZA VACCINE (#1) 2025 Pre-Diabetes and Diabetes Screening 12/28/202712/27 Procedures Procedure Name Priority Date/Time Associated Diagnosis Comments TELEMETRY REPORT 01/04/2025 3:56 PM CDT BASIC METABOLIC PANEL Routine 01/03/2025 3:46 AM CDT HOME O2 EVAL (DESATURATION SCREEN) Routine 01/02/2025 11:09 AM CDT BASIC METABOLIC PANEL Routine 01/02/2025 3:06 AM CDT CBC WITHOUT DIFFERENTIAL Routine 01/02/2025 3:06 AM CDT BASIC METABOLIC PANEL Routine 01/01/2025 1:21 AM CDT BASIC METABOLIC PANEL Routine 12/31/2024 2:06 AM CDT TELEMETRY REPORT 12/30/2024 12:2 1 PM CDT MAGNESIUM LEVEL Routine 12/30/2024 8:58 AM CDT DIFFERENTIAL, MANUAL Stat 12/30/2024 8:58 AM CDT BASIC METABOLIC PANEL Stat 12/30/2024 8:58 AM CDT CBC WITH DIFFERENTIAL Stat 12/30/2024 8:58 AM CDT CBC WITHOUT DIFFERENTIAL Routine 12/29/2024 10:32 AM CDT BASIC METABOLIC PANEL Routine 12/29/2024 10:32 AM CDT LMW HEPARIN ACTIVITY Timed Study 12/28/2024 12:15 PM CDT ECHOCARDIOGRAM W/ CONTRAST AGENT Routine 12/28/2024 11:25 AM CDT LMW HEPARIN ACTIVITY Timed Study 12/28/2024 2:27 AM CDT BRAIN NATRIURETIC PEPTIDE, BNP OR PROBNP Routine 12/28/2024 2:27 AM CDT BASIC METABOLIC PANEL Routine 12/28/2024 2:27 AM CDT BASIC METABOLIC PANEL Routine 12/28/2024 2:[address] CHEST ABDOMEN PELVIS W CONT Routine 12/27/2024 12:59 PM CDT HEMOGLOBIN A1C Routine 12/27/2024 3:52 AM CDT LIPID PANEL Routine 12/27/2024 3:52 AM CDT DIFFERENTIAL, MANUAL Routine 12/27/2024 3:52 AM CDT COMPREHENSIVE METABOLIC PANEL Stat 12/27/2024 3:52 AM CDT LACTIC ACID Stat 12/27/2024 3:52 AM CDT PROTIME-INR Routine 12/27/2024 3:52 AM CDT CBC WITH DIFFERENTIAL Routine 12/27/2024 3:52 AM CDT MAGNESIUM LEVEL Routine 12/27/2024 3:52 AM CDT TROPONIN BASELINE, 5TH GEN Routine 12/27/2024 3:52 AM CDT C-REACTIVE PROTEIN Routine 12/27/2024 3: 52 AM CDT SEDIMENTATION RATE Routine 12/27/2024 3: 52 AM CDT BLOOD CULTURE Routine 12/27/2024 3:52 AM CDT BLOOD CULTURE Routine 12/27/2024 3:52 AM CDT BLOOD CULTURE Routine 12/27/2024 1:55 AM CDT BLOOD CULTURE Routine 12/27/2024 1:55 AM CDT DRUG SCREEN, URINE Routine 12/27/2024 12 :53 AM CDT RT ASSESS AND TREAT Routine 12/27/2024 1 2:24 AM CDT from Last 3 Months Results * TELEMETRY REPORT (01/04/2025 3:56 PM CDT) Only the most recent of2 resultswithin the time period is included. us Provider Scanning ECG ORDERABLES Final Result * (ABNORMAL) BASIC METABOLIC PANEL (01/03/2025 3:46 AM CDT) Only the most recent of8 resultswithin the time period is included. SODIUM 140 136 - 145 mmol/L 01/03/2025 5:44 AM CDT [facility] POTASSIUM 4.0 3.5 - 5.0 mmol/L 01/03/2025 5:44 AM CDT [facility] CHLORIDE 97(L) 98 - 107 mmol/L 01/03/2025 5:44 AM CDT [facility] CO2 34(H) 22 - 29 mmol/L 01/03/2025 5:44 AM CDT [facility] CALCIUM 8.9 8.6 - 10.2 mg/dL 01/03/2025 5:44 AM CDT [facility] BUN 16 6 - 20 mg/dL 01/03/2025 5:44 AM CDT [facility] CREATININE 0.64 0.51 - 0.95 mg/dL 01/03/2025 5:44 AM CDT [facility] GLUCOSE 121(H) 74 - 99 mg/dL 01/03/2025 5:44 AM [facility] GFR >60 >=60 mL/min/1.7 3 sq meter 01/03/2025 5:44 AM [facility] Comment:eGFR calculated with 2020 CKD-EPI equation. Vegetarian diet, extremely high or low muscle mass, and may affect results. Cystatin C with Glomerular Filtration Rate is a suitable alternative for these patients. ANION GAP 9 8 - 16 mmol/L 01/03/2025 5:44 AM [facility] Blood Venipuncture / Unknown 01/03/2025 3:46 AM CDT 01/03/2025 4:53 AM CDT [facility] Kelly Dubois MD CHEMISTRY ORDERABLES Final Result [facility]# [id number] [address] [facility] [place] [address] * HOME O2 EVAL (DESATURATION SCREEN) (01/02/2025 11:09 AM CDT) Narrative Lauren Angel RCP - 01/02/2025 11:09 AM CDT Lauren Angel RCP 01/02/2025 11:11 AM OXYGEN WALK STUDY Oxygen Walk Study performed per Medicare guidelines for severe lung disease with a SpO2 of 88% or less while on room air at rest or with exertion. Recommendation: Patient requires 0 Liters per minute of oxygen at rest and 2 Lpm with exertion to maintain SpO2 of greater or equal to 90%. Baseline at rest-RA Pre Test at Rest. With Activity With Activity With Activity Post Test at Rest. Oxygen Level: RA RA 2L 2L 2L Heart Rate: 76 109 102 122 91 SpO2: 93% 87% 95% 95% 95% Comments about Evaluation: STUDY GOOD FOR 48 HOURS. Head probe used. Pt walked approximately 150 ft with rollator. Pt was SOB with walk and had to stop to take couple breaks. Please call [phone] for any questions about this walk study. us Quan La MD RESPIRATORY CARE ORDERABLES Thea l Result * (ABNORMAL) CBC WITHOUT DIFFERENTIAL (01/02/2025 3:06 AM CDT) Only the most recent of2 resultswithin the time period is included. WBC 6.1 4.0 - 9.8 K/uL 01/02/2025 3:45 AM CDT [facility] RBC 5.41(H) 3.90 - 4.90 M/uL 01/02/2025 3:45 AM CDT [facility] HEMOGLOBIN 11.2(L) 11.8 - 14.8 g/dL 01/02/2025 3:45 AM CDT [facility] HEMATOCRIT 44.2(H) 35.5 - 44.0 % 01/02/2025 3:45 AM CDT [facility] MCV 81.7(L) 82.0 - 99.0 fL 01/02/2025 3:45 AM CDT [facility] MCH 20.7(L) 27.2 - 32.6 pg 01/02/2025 3:45 AM CDT [facility] MCHC <27.0(L) 31.5 - 35.5 g/dL 01/02/2025 3:45 AM CDT [facility] PLATELETS 195 140 - 350 K/uL 01/02/2025 3:45 AM CDT [facility] MPV 01/02/2025 3:45 AM CDT [facility] Comment:Parameter not availa ble RDW 19.9(H) 11.5 - 14.5 % 01/02/2025 3:45 AM CDT [facility] RDW-STDEV 56.4(H) 37.1 - 48.7 fL 01/02/2025 3:45 AM CDT [facility] Blood Venipuncture / Unknown 01/02/2025 3:06 AM CDT 01/02/2025 3:12 AM CDT Pallavi Flynn MD HEMATOLOGY ORDERABLE S Final Result [facility] CLIA# [id number] [address] [place] [address] * MANUAL DIFFERENTIAL (12/30/2024 8:58 AM CDT) Only the most recent of2 resultswithin the time period is included. Pathologist [facility] PLATELET EST. Consistent w Count 12/30/2024 10:14 AM CDT [facility] ANISOCYTOSIS 2+ /hpf 12/30/2024 10:14 AM CDT [facility] POIKILOCYTES 1+ /hpf 12/30/2024 10:14 AM CDT [facility] MICROCYTES 1+ /hpf 12/30/2024 10:14 AM CDT [facility] POLYCHROMASIA 1+ /hpf 12/30/2024 10:14 AM CDT [facility] HYPOCHROMIA 2+ /hpf 12/30/2024 10:14 AM CDT [facility] STOMATOCYTES Present /hpf 12/30/2024 10:14 AM CDT [facility] Blood Venipuncture / Unknown 12/30/2024 8:58 AM CDT 12/30/2024 9:03 AM CDT [facility] Kelly Dubois MD HEMATOLOGY ORDERABLES COM F inal Result [facility] CLIA# [id number] [address] [place] [address] * (ABNORMAL) CBC WITH DIFFERENTIAL (12/30/2024 8:58 AM CDT) Only the most recent of2 resultswithin the time period is included. Pathologist [facility] WBC 6.3 4.0 - 9.8 K/uL 12/30/2024 9:38 AM CDT [facility] RBC 5.67(H) 3.90 - 4.90 M/uL 12/30/2024 9:38 AM CDT [facility] HEMOGLOBIN 11.7(L) 11.8 - 14.8 g/dL 12/30/2024 9:38 AM CDT [facility] HEMATOCRIT 45.4(H) 35.5 - 44.0 % 12/30/2024 9:38 AM CDT [facility] MCV 80.1(L) 82.0 - 99.0 fL 12/30/2024 9:38 AM CDT [facility] MCH 20.6(L) 27.2 - 32.6 pg 12/30/2024 9:38 AM CDT [facility] MCHC <27.0(L) 31.5 - 35.5 g/dL 12/30/2024 9:38 AM CDT [facility] RDW 20.1(H) 11.5 - 14.5 % 12/30/2024 9:38 AM CDT [facility] RDW-STDEV 55.4(H) 37.1 - 48.7 fL 12/30/2024 9:38 AM CDT [facility] PLATELETS 212 140 - 350 K/uL 12/30/2024 9:38 AM CDT [facility] MPV 12.1 9.3 - 12.4 fL 12/30/2024 9:38 AM CDT [facility] NEUTROPHILS 71 % 12/30/2024 9:38 AM CDT [facility] LYMPHOCYTES 16 % 12/30/2024 9:38 AM CDT [facility] MONOCYTES 9 % 12/30/2024 9:38 AM CDT [facility] EOSINOPHILS 3 % 12/30/2024 9:38 AM CDT [facility] BASOPHILS 1 % 12/30/2024 9:38 AM CDT [facility] IMMATURE GRANULOCYTES 0 % 12/30/2024 9:38 AM CDT [facility] NEUTROPHIL ABSOLUTE 4.43 1.90 - 7.00 K/uL 12/30/2024 9:38 AM CDT [facility] - . [facility] LYMPHOCYTE ABSOLUTE 1.02 0.70 - 4.50 K/uL 12/30/2024 9:38 AM CDT [facility] MONOCYTE ABSOLUTE 0.56 0.10 - 1.30 K/uL 12/30/2024 9:38 AM CDT [facility] EOSINOPHIL ABSOLUTE 0.20 0.00 - 0.70 K/uL 12/30/2024 9:38 AM CDT [facility] BASOPHILS ABSOLUTE 0.05 0.00 - 0.20 K/uL 12/30/2024 9:38 AM CDT [facility] - . [facility] IMMATURE GRANULOCYTES ABSOLUTE 0.02 0.00 - 0.03 K/uL 12/30/2024 9:38 AM CDT [facility] - [facility] Blood Venipuncture / Unknown 12/30/2024 8:58 AM CDT 12/30/2024 9:03 AM CDT Elham Dubois MD HEMATOLOGY ORDERABLES Final Result [facility]# [id number] [address] [place] [address] * MAGNESIUM LEVEL (12/30/2024 8:58 AM CDT) Only the most recent of2 resultswithin the time period is included. MAGNESIUM 2.3 1.6 - 2.6 mg/dL 12/30/2024 1:15 PM CDT [facility] Blood Venipuncture / Unknown 12/30/2024 8:58 AM CDT 12/30/2024 9:03 AM CDT Lizabeth MCCARTHY CHEMISTRY ORDERABLES Final Res ult [facility] CLIA# [id number] [address] [place] [address] * LMW HEPARIN MONITORING (12/28/2024 12:15 PM CDT) Only the most recent of2 resultswithin the time period is included. ANTI-XA LMW HEP 0.88 See Interpreta tion. IU/mL 12/28/2024 1:11 PM CDT [facility] Blood Venipuncture / Unknown 12/28/2024 12:15 PM CDT 12/28/2024 12:35 PM CDT [facility] - 12/28/2024 1:11 PM CDT [facility] Therapeutic Range: Twice daily dosin.50-1.00 IU/mL Once daily dosin.00-2.00 IU/mL Based on Enoxaparin brand low molecular weight heparin. Note: Refer to pharmacy recommendations for pediatric dosing information. The reference range for this test is specific to the anticoagulant and is not appropriate for monitoring patients on a DOAC protocol. us Negrito Chávez MD HEMATOLOGY ORDERABLES Final Result [facility]# [id number] [address] [facility] [address] [id number] * ECHOCARDIOGRAM W/ CONTRAST AGENT (12/28/2024 11:25 AM CDT) Pathologist [facility] EJECTION FRACTION 55 INTERFACE SYSTEM 12/28/2024 10:4 6 AM CDT [facility] INTERFACE SYSTEM - 12/28/2024 11:54 AM CDT [facility] [address] [place] [address] [email or web address] Transthoracic Echocardiogram Patient: July Cardenas Study ID: [id number] Gender: F : 1975 Age: 49 Race: DEEJAY Height 175.3cm Study Date: 12/28/2024 Weight: 179kg Access. #: [id number] BP: *Referring Physician:Pallavi Kc *Ordering Physician:Pallavi Kc board writer: Nurse: Indications: Atrial fibrillation. STUDY CONCLUSIONS: SUMMARY: - Left ventricle: The cavity size was normal. Wall thickness was increased increased in a pattern of mild to moderate LVH. Global systolic function is normal. For Epic reporting: the left ventricular ejection fraction is 55% . The study was not technically sufficient to allow evaluation of LV diastolic dysfunction due to atrial fibrillation. - Left atrium: The atrium is dilated. - Right ventricle: The cavity size is normal. Systolic function is normal. - Tricuspid valve: Mild-moderate regurgitation. - Pulmonary arteries: Systolic pressure was increased. The peak systolic pressure is 50mm Hg. - Pericardium: A small pericardial effusion is identified posterior to the heart. There is no evidence of hemodynamic compromise. Cardiac Anatomy: LEFT VENTRICLE: The cavity size was normal. Wall thickness was increased increased in a pattern of mild to moderate LVH. Global systolic function is normal. For Epic reporting: the left ventricular ejection fraction is 55% . Wall motion is normal; there are no regional wall motion abnormalities. The study was not technically sufficient to allow evaluation of LV diastolic dysfunction due to atrial fibrillation. AORTIC VALVE: Structurally normal valve. Trileaflet. There was no stenosis. No significant regurgitation. The mean systolic gradient is 4mm Hg. The peak systolic gradient is 6mm Hg. The LVOT to aortic valve VTI ratio is 0.65. The valve area is 2.0cm^2. The ratio of LVOT to aortic valve peak velocity is 0.68. AORTA: Aortic root: The root is normal-sized. MITRAL VALVE: Structurally normal valve. There is no evidence for stenosis. No significant regurgitation. The mean diastolic gradient is 3mm Hg. The peak diastolic gradient is 4mm Hg. LEFT ATRIUM: The atrium is dilated. RIGHT VENTRICLE: The cavity size is normal. Systolic function is normal. PULMONIC VALVE: Structurally normal valve. No significant regurgitation. TRICUSPID VALVE: Structurally normal valve. Mild-moderate regurgitation. PULMONARY ARTERY: Systolic pressure was increased. RIGHT ATRIUM: The atrium was normal in size. SYSTEMIC VEINS: Inferior vena cava: The IVC is normal-sized. PERICARDIUM: A small pericardial effusion is identified posterior to the heart. There is no evidence of hemodynamic compromise. Measurements Left ventricle Value Ref IVS, ED, LAX (H) 1.4 cm 0.6 - 0.9 BENSON, LAX (N) 4.5 cm 3.8 - 5.2 BENSON/bsa, LAX (L) 1.6 cm/m^2 2.3 - 3.1 BENSON, LAX chord (N) 4.7 cm 3.8 - 5.2 ESD, LAX chord (H) 4.2 cm 2.2 - 3.5 BENSON/bsa, LAX chord (L) 1.7 cm/m^2 2.3 - 3.1 ESD/bsa, LAX chord (N) 1.5 cm/m^2 1.3 - 2.1 FS, LAX chord (L) 12 % 27 - 45 IVS, ED (H) 1.2 cm 0.6 - 0.9 PW, ED (H) 1.4 cm 0.6 - 0.9 EDV, 2-p (H) 201 ml 46 - 106 ESV, 2-p (H) 93 ml 14 - 42 EF, 2-p (N) 54 % 54 - 74 SV, 2-p 108 ml --------- SV/bsa, 2-p 39.1 ml/m^2 --------- E', lat mario, TDI (N) 11.7 cm/sec >=10.0 E/e', lat mario, TDI (N) 8 <=13 E', med mario, TDI (N) 11.3 cm/sec >=7.0 E/e', med mario, TDI 8 --------- E', avg, TDI 11.5 cm/sec --------- E/e', avg, TDI (N) 8 <=14 LVOT Value Ref Diam, S 2.0 cm --------- Area 3.1 cm^2 --------- Peak erasmo, S 0.86 m/sec --------- VTI, S 14.8 cm --------- Right ventricle Value Ref Pressure, S 53 mm Hg --------- Left atrium Value Ref AP dim, ES (H) 4.5 cm 2.7 - 3.8 AP dim index, ES (N) 1.6 cm/m^2 1.5 - 2.3 SI dim, A4C 7.2 cm --------- Area ES, A4C (H) 32 cm^2 <=20 Area/bsa ES, A4C 11.56 cm^2/m^2 --------- SI dim, A2C 7.0 cm --------- SI dim, shorter 7.0 cm --------- Vol, ES, 1-p A2C (H) 113 ml 22 - 52 Vol/bsa, ES, 1-p A2C (H) 41 ml/m^2 13 - 40 Vol, ES, 2-p 114 ml --------- Vol/bsa, ES, 2-p (H) 41 ml/m^2 16 - 34 LA/Ao root ratio 1.5 --------- Aortic valve Value Ref Peak v, S 1.3 m/sec --------- Mean v, S 0.93 m/sec --------- VTI, S 22.8 cm --------- Mean grad, S 4 mm Hg --------- Peak grad, S 6 mm Hg --------- LVOT/AV, VTI ratio 0.65 --------- SHELLIE, VTI 2.0 cm^2 --------- SHELLIE/bsa, VTI 0.74 cm^2/m^2 --------- LVOT/AV, Vpeak ratio 0.68 --------- SHELLIE, Vmax 2.1 cm^2 --------- SHELLIE/bsa, Vmax 0.77 cm^2/m^2 --------- Mitral valve Value Ref Mean v, D 0.77 m/sec --------- Peak E 0.92 m/sec --------- Decel time 201 ms --------- Mean grad, D 3 mm Hg --------- Peak grad, D 4 mm Hg --------- A-VTI 21.8 cm --------- Pulmonic valve Value Ref Peak v, S 0.79 m/sec --------- Accel time 85 ms --------- Peak grad, S 3 mm Hg --------- Tricuspid valve Value Ref TR peak v (H) 3.1 m/sec <=2.8 Peak RV-RA grad, S 38 mm Hg --------- Aortic root Value Ref Root diam, 3.0 cm --------- Ascending aorta Value Ref AAo AP diam, S 3.0 cm --------- AAo AP diam/bsa, S 1.1 cm/m^2 --------- Pulmonary artery Value Ref Pressure, S 50 mm Hg --------- Systemic veins Value Ref Estimated RA pressure 15 mm Hg --------- Legend: (L) and (H) khari values outside specified reference range. (N) lopez values inside specified reference range. Procedure data: Procedure information: A transthoracic echocardiogram was performed. Scanning was performed from the parasternal, apical, and subcostal acoustic windows. Intravenous contrast (Definity) was administered. Transthoracic echocardiogram. Complete 2D, complete spectral Doppler, and color Doppler. Birthdate: Patient birthdate: 1975. Age: Patient is 49year(s) old. Sex: gender: female. Height: 175.3cm. 69in. Weight: 179kg. 394.7lb. Body mass index: 58.3kg/m^2. Body surface area: 2.76m^2. Study date: Study date: 12/28/2024. Study time: 10:46 AM. Prepared and Electronically Authenticated Solomon Silvestre MD [id number] Procedure Note Solomon Silvestre MD - 12/28/[address] [place] [address] [email or web address] Transthoracic Echocardiogram Patient: July Cardenas Study ID: [id number] Gender: F : 1975 Age: 49 Race: DEEJAY Height 175.3cm Study Date: 12/28/2024 Weight: 179kg Access. #: [id number] BP: *Referring Physician:Pallavi Kc *Ordering Physician:Pallavi Kc board writer: Nurse: Indications: Atrial fibrillation. STUDY CONCLUSIONS: SUMMARY: - Left ventricle: The cavity size was normal. Wall thickness wasincreased increased in a pattern of mild to moderate LVH. Global systolic functionis normal. For Epic reporting: the left ventricular ejection fraction is55% . The study was not technically sufficient to allow evaluation of LVdiastolic dysfunction due to atrial fibrillation. - Left atrium: The atrium is dilated. - Right ventricle: The cavity size is normal. Systolic function isnormal. - Tricuspid valve: Mild-moderate regurgitation. - Pulmonary arteries: Systolic pressure was increased. The peak systolic pressure is 50mm Hg. - Pericardium: A small pericardial effusion is identified posterior tothe heart. There is no evidence of hemodynamic compromise. Cardiac Anatomy: LEFT VENTRICLE: The cavity size was normal. Wall thickness wasincreased increased in a pattern of mild to moderate LVH. Global systolic functionis normal. For Epic reporting: the left ventricular ejection fraction is 55%. Wall motion is normal; there are no regional wall motion abnormalities.The study was not technically sufficient to allow evaluation of LV diastolic dysfunction due to atrial fibrillation. AORTIC VALVE: Structurally normal valve. Trileaflet. There was nostenosis. No significant regurgitation. The mean systolic gradient is 4mm Hg.The peak systolic gradient is 6mm Hg. The LVOT to aortic valve VTI ratio is0.65. The valve area is 2.0cm^2. The ratio of LVOT to aortic valve peak velocityis 0.68. AORTA: Aortic root: The root is normal-sized. MITRAL VALVE: Structurally normal valve. There is no evidence for stenosis. No significant regurgitation. The mean diastolic gradient is3mm Hg. The peak diastolic gradient is 4mm Hg. LEFT ATRIUM: The atrium is dilated. RIGHT VENTRICLE: The cavity size is normal. Systolic function isnormal. PULMONIC VALVE: Structurally normal valve. No significantregurgitation. TRICUSPID VALVE: Structurally normal valve. Mild-moderateregurgitation. PULMONARY ARTERY: Systolic pressure was increased. RIGHT ATRIUM: The atrium was normal in size. SYSTEMIC VEINS: Inferior vena cava: The IVC is normal-sized. PERICARDIUM: A small pericardial effusion is identified posterior tothe heart. There is no evidence of hemodynamic compromise. Measurements Left ventricle Value Ref IVS, ED, LAX (H) 1.4 cm 0.6 - 0.9 BENSON, LAX (N) 4.5 cm 3.8 - 5.2 BENSON/bsa, LAX (L) 1.6 cm/m^2 2.3 - 3.1 BENSON, LAX chord (N) 4.7 cm 3.8 - 5.2 ESD, LAX chord (H) 4.2 cm 2.2 - 3.5 BENSON/bsa, LAX chord (L) 1.7 cm/m^2 2.3 - 3.1 ESD/bsa, LAX chord (N) 1.5 cm/m^2 1.3 - 2.1 FS, LAX chord (L) 12 % 27 - 45 IVS, ED (H) 1.2 cm 0.6 - 0.9 PW, ED (H) 1.4 cm 0.6 - 0.9 EDV, 2-p (H) 201 ml 46 - 106 ESV, 2-p (H) 93 ml 14 - 42 EF, 2-p (N) 54 % 54 - 74 SV, 2-p 108 ml --------- SV/bsa, 2-p 39.1 ml/m^2 --------- E', lat mario, TDI (N) 11.7 cm/sec >=10.0 E/e', lat mario, TDI (N) 8 <=13 E', med mario, TDI (N) 11.3 cm/sec >=7.0 E/e', med mario, TDI 8 --------- E', avg, TDI 11.5 cm/sec --------- E/e', avg, TDI (N) 8 <=14 LVOT Value Ref Diam, S 2.0 cm --------- Area 3.1 cm^2 --------- Peak erasmo, S 0.86 m/sec --------- VTI, S 14.8 cm --------- Right ventricle Value Ref Pressure, S 53 mm Hg --------- Left atrium Value Ref AP dim, ES (H) 4.5 cm 2.7 - 3.8 AP dim index, ES (N) 1.6 cm/m^2 1.5 - 2.3 SI dim, A4C 7.2 cm --------- Area ES, A4C (H) 32 cm^2 <=20 Area/bsa ES, A4C 11.56 cm^2/m^2 --------- SI dim, A2C 7.0 cm --------- SI dim, shorter 7.0 cm --------- Vol, ES, 1-p A2C (H) 113 ml 22 - 52 Vol/bsa, ES, 1-p A2C (H) 41 ml/m^2 13 - 40 Vol, ES, 2-p 114 ml --------- Vol/bsa, ES, 2-p (H) 41 ml/m^2 16 - 34 LA/Ao root ratio 1.5 --------- Aortic valve Value Ref Peak v, S 1.3 m/sec --------- Mean v, S 0.93 m/sec --------- VTI, S 22.8 cm --------- Mean grad, S 4 mm Hg --------- Peak grad, S 6 mm Hg --------- LVOT/AV, VTI ratio 0.65 --------- SHELLIE, VTI 2.0 cm^2 --------- SHELLIE/bsa, VTI 0.74 cm^2/m^2 --------- LVOT/AV, Vpeak ratio 0.68 --------- SHELLIE, Vmax 2.1 cm^2 --------- SHELLIE/bsa, Vmax 0.77 cm^2/m^2 --------- Mitral valve Value Ref Mean v, D 0.77 m/sec --------- Peak E 0.92 m/sec --------- Decel time 201 ms --------- Mean grad, D 3 mm Hg --------- Peak grad, D 4 mm Hg --------- A-VTI 21.8 cm --------- Pulmonic valve Value Ref Peak v, S 0.79 m/sec --------- Accel time 85 ms --------- Peak grad, S 3 mm Hg --------- Tricuspid valve Value Ref TR peak v (H) 3.1 m/sec <=2.8 Peak RV-RA grad, S 38 mm Hg --------- Aortic root Value Ref Root diam, 3.0 cm --------- Ascending aorta Value Ref AAo AP diam, S 3.0 cm --------- AAo AP diam/bsa, S 1.1 cm/m^2 --------- Pulmonary artery Value Ref Pressure, S 50 mm Hg --------- Systemic veins Value Ref Estimated RA pressure 15 mm Hg --------- Legend: (L) and (H) khari values outside specified reference range. (N) lopez values inside specified reference range. Procedure data: Procedure information: A transthoracic echocardiogram was performed.Scanning was performed from the parasternal, apical, and subcostal acousticwindows. Intravenous contrast (Definity) was administered. Transthoracic echocardiogram. Complete 2D, complete spectral Doppler, and colorDoppler. Birthdate: Patient birthdate: 1975. Age: Patient is 49year(s)old. Sex: gender: female. Height: 175.3cm. 69in. Weight: 179kg.394.7lb. Body mass index: 58.3kg/m^2. Body surface area: 2.76m^2. Studydate: Study date: 12/28/2024. Study time: 10:46 AM. Prepared andElectronically Authenticated Solomon Silvestre MD [id number] us Pallavi Flynn MD US ORDERABLES Thea l Result INTERFACE SYSTEM Refer to clinic/hospital department * (ABNORMAL) BRAIN NATRIURETIC PEPTIDE, BNP OR PROBNP (12/28/2024 2:27 AM CDT) PROBNP, N TERMINAL 731(H) <124 pg/mL 12/28/2024 4:12 AM CDT [facility] Comment: INTERPRETIVE COMMENT based on diagnosis: Diagnostic NT pro-BNP cutoffs for Heart Failure in the absence of renal failure is suggested for the following ranges <75 years: <125 pg/mL >=75 years: <450 pg/mL Exclusionary rule out cut-point for Acute Decompensated Heart Failure(ADHF) All ages: <300 pg/mL Diagnostic NT pro-BNP cutoffs for Acute Decompensated Heart Failure(ADHF) in the absence of renal failure is suggested for the following ages <50 years: > 450 pg/mL 50-75 years: > 900 pg/mL >75 years: >1800 pg/mL Blood Venipuncture / Unknown 12/28/2024 2:27 AM CDT 12/28/2024 3:24 AM CDT Elham Dubois MD CHEMISTRY ORDERABLES Final Result [facility]# [id number] [address] [place] [address] * CT CHEST ABDOMEN PELVIS W CONT (12/27/2024 12:59 PM CDT) Anatomical Region Laterality Modality Chest Computed Tomogra phy 12/27/2024 12:4 6 PM CDT Impressions 12/27/2024 1:59 PM CDT IMPRESSION: 1. Moderate sized pericardial effusion. 2. Cardiomegaly. 3. No pulmonary mass or consolidation. 4. Indeterminate pulmonary nodules measuring up to 0.5 cm. If the patient is high risk for lung cancer (history of smoking, carcinogen exposure or family history of lung cancer) consider follow-up noncontrast chest CT in 12 months to ensure stability. 5. Generalized anasarca. 6. Small amount of perihepatic free fluid. 7. No acute process in the abdomen or pelvis. 8. Hepatosplenomegaly. DICTATION LOCATION: Location Claudia Figueroa 12/27/2024 1:[address] CHEST ABDOMEN PELVIS W CONT INDICATION: Sepsis COMPARISON: None. TECHNIQUE: Following the uneventful administration of intravenous contrast, CT images of the chest, abdomen, and pelvis were obtained. CONTRAST: IOPAMIDOL 61 % INTRAVENOUS SOLUTION (MULTI-DOSE BULK PACK) Given:110 mL FINDINGS: Lungs and Airways: Mosaic attenuation of the lungs, likely due to small airways disease. 0.5 cm right lower lobe pulmonary nodule (series 3, image 158). 0.4 cm left upper lobe subpleural pulmonary nodule (series 303, image 73). No pulmonary mass or consolidation. No endoluminal lesion. Pleura: The pleural spaces are normal. Heart and Mediastinum: The visualized portions of the thyroid gland are normal in size and attenuation. No axillary or supraclavicular lymphadenopathy. No mediastinal, hilar or retrocrural lymphadenopathy. Cardiomegaly. Moderate sized pericardial effusion. The great vessels of the thorax are normal. ABDOMEN: No free air. Small amount of perihepatic free fluid. Liver: Hepatomegaly. The liver measures 25 cm craniocaudal. The liver enhances homogeneously without focal mass. Gallbladder and biliary: Normal gallbladder. Normal caliber bile ducts. Spleen: Splenomegaly. The spleen measures 17 cm in AP dimension. Pancreas: The pancreas enhances homogeneously without focal mass or peripancreatic inflammatory changes. No pancreatic duct dilation. Adrenal glands: Normal size adrenal glands. Kidneys and ureters: Normal enhancing kidneys and ureters. No renal stones. GI tract, Mesentery: The stomach is normal. Normal caliber small bowel. Normal caliber colon. Vascular structures: Normal caliber abdominal aorta. The celiac artery, SMA, bilateral renal arteries, and CORAL are patent. Portal and mesenteric venous structures are patent. Retroperitoneum, Lymph nodes: No lymphadenopathy in the abdomen or pelvis. PELVIS: Genitourinary system: Normal bladder.. SKELETAL STRUCTURES AND SOFT TISSUES: No fracture or destructive lesions in the visualized skeleton. Generalized anasarca. Procedure Note Yamil Ford MD - 07/15/2025 CT CHEST ABDOMEN PELVIS W CONT INDICATION: Sepsis COMPARISON: None. TECHNIQUE: Following the uneventful administration of intravenous contrast, CT images of the chest, abdomen, and pelvis were obtained. CONTRAST: IOPAMIDOL 61 % INTRAVENOUS SOLUTION (MULTI-DOSE BULK PACK) Given:110 mL FINDINGS: Lungs and Airways: Mosaic attenuation of the lungs, likely due to small airways disease. 0.5 cm right lower lobe pulmonary nodule (series 3, image 158). 0.4 cm left upper lobe subpleural pulmonary nodule (series 303, image 73). No pulmonary mass or consolidation. No endoluminal lesion. Pleura: The pleural spaces are normal. Heart and Mediastinum: The visualized portions of the thyroid gland are normal in size and attenuation. No axillary or supraclavicular lymphadenopathy. No mediastinal, hilar or retrocrural lymphadenopathy. Cardiomegaly. Moderate sized pericardial effusion. The great vessels of the thorax are normal. ABDOMEN: No free air. Small amount of perihepatic free fluid. Liver: Hepatomegaly. The liver measures 25 cm craniocaudal. The liver enhances homogeneously without focal mass. Gallbladder and biliary: Normal gallbladder. Normal caliber bile ducts. Spleen: Splenomegaly. The spleen measures 17 cm in AP dimension. Pancreas: The pancreas enhances homogeneously without focal mass or peripancreatic inflammatory changes. No pancreatic duct dilation. Adrenal glands: Normal size adrenal glands. Kidneys and ureters: Normal enhancing kidneys and ureters. No renal stones. GI tract, Mesentery: The stomach is normal. Normal caliber small bowel. Normal caliber colon. Vascular structures: Normal caliber abdominal aorta. The celiac artery, SMA, bilateral renal arteries, and CORAL are patent. Portal and mesenteric venous structures are patent. Retroperitoneum, Lymph nodes: No lymphadenopathy in the abdomen or pelvis. PELVIS: Genitourinary system: Normal bladder.. SKELETAL STRUCTURES AND SOFT TISSUES: No fracture or destructive lesions in the visualized skeleton. Generalized anasarca. IMPRESSION: 1. Moderate sized pericardial effusion. 2. Cardiomegaly. 3. No pulmonary mass or consolidation. 4. Indeterminate pulmonary nodules measuring up to 0.5 cm. If the patient is high risk for lung cancer (history of smoking, carcinogen exposure or family history of lung cancer) consider follow-up noncontrast chest CT in 12 months to ensure stability. 5. Generalized anasarca. 6. Small amount of perihepatic free fluid. 7. No acute process in the abdomen or pelvis. 8. Hepatosplenomegaly. DICTATION LOCATION: Location [address] [place] [address] ORDERABLES Thea l Result * (ABNORMAL) TROPONIN BASELINE, 5TH GEN (12/27/2024 3:52 AM CDT) TROPONIN T, BASELINE 5TH GEN 15(H) <=10 ng/L 12/27/2024 4:36 AM CDT [facility] Blood Venipuncture / Unknown 12/27/2024 3:52 AM CDT 12/27/2024 3:59 AM CDT Narrative [facility] - 12/27/2024 4:36 AM CDT Troponin elevated. Pallavi Flynn MD CHEMISTRY ORDERABLES Final Result Performing Organization Address City/[facility]/ZIP Co de Phone Number [facility] CLIA# [id number] [address] [place] [address] * LACTIC ACID (12/27/2024 3:52 AM CDT) Pathologist [facility] LACTIC ACID 1.0 <=2.0 mmol/L 12/27/2024 4:22 AM CDT [facility] Blood Venipuncture / Unknown 12/27/2024 3:52 AM CDT 12/27/2024 4:00 AM CDT Pallavi Flynn MD CHEMISTRY ORDERABLES Final Result Performing Organization Address City/[facility]/ZIP Co de Phone Number [facility] CLIA# [id number] [address] [place] [address] * BLOOD CULTURE (12/27/2024 3:52 AM CDT) Only the most recent of2 resultswithin the time period is included. Pathologist [facility] BLOOD CULTURE No growth 01/01/2025 6:26 AM CDT [facility] Blood (Peripheral) Venipuncture / Unknown 12/27/2024 3:52 AM CDT 12/27/2024 3:59 AM CDT Pallavi Flynn MD MICROBIOLOGY - GENER AL ORDERABLES Final Result Performing Organization Address [facility]/ZIP Co de Phone Number [facility] CLIA# [id number] [address] [place] [address] * SEDIMENTATION RATE (12/27/2024 3:52 AM CDT) [facility] ESR (SEDIMENTATION RATE) 11 <=30 mm/Hr 12/27/2024 5:11 AM CDT [facility] Blood Venipuncture / Unknown 12/27/2024 3:52 AM CDT 12/27/2024 3:59 AM CDT Pallavi Flynn MD HEMATOLOGY ORDERABLE S Final Result Performing Organization Address City/[facility]/ZIP Co de Phone Number [facility]# [id number] [address] [place] [address] * (ABNORMAL) PROTIME-INR (12/27/2024 3:52 AM CDT) [facility] PROTIME 15.8(H) 12.7 - 15.1 Seconds 12/27/2024 4:17 AM CDT [facility] INR 1.3(H) 0.9 - 1.1 12/27/2024 4:17 AM CDT [facility] Blood Venipuncture / Unknown 12/27/2024 3:52 AM CDT 12/27/2024 3:59 AM CDT Narrative [facility] - 12/27/2024 4:17 AM CDT INR Therapeutic Range: Adult: 2.0 - 3.0 for pulmonary embolism or prophylaxis against venous thrombosis or systemic embolization. 2.0 - 3.0 for patients with tissue heart valves. 2.5 - 3.5 for patients with mechanical heart valves or post NC. Pediatric (12 years and under): 1.5 - 3.0 Although the target range in children is not well established, INR values of 1.5 - 3.0 are recommended for most patients. Higher values have been used in children with prosthetic cardiac valves and hereditary clotting disorders. (<3 days) therapeutic ranges have not been established. Pallavi Flynn MD HEMATOLOGY ORDERABLE S Final Result [facility] CLIA# [id number] [address] [place] [address] * (ABNORMAL) C-REACTIVE PROTEIN (12/27/2024 3:52 AM CDT) CRP 34.6(H) <5.0 mg/L 12/27/2024 4:36 AM CDT [facility] Blood Venipuncture / Unknown 12/27/2024 3:52 AM CDT 12/27/2024 3:59 AM CDT Pallavi Flynn MD CHEMISTRY ORDERABLES Final Result [facility] CLIA# [id number] [address] [place] [address] * (ABNORMAL) HEMOGLOBIN A1C (12/27/2024 3:52 AM CDT) HEMOGLOBIN A1C 6.3(H) <5.7 % 12/27/2024 11:58 AM CDT [facility] EST. AVG GLUCOSE, A1C 134 mg/dL 12/27/2024 11:58 AM CDT [facility] Blood Venipuncture / Unknown 12/27/2024 3:52 AM CDT 12/27/2024 3:59 AM CDT [employer] [facility] - 12/27/2024 11:58 AM CDT HGB A1C INTERPRETATION NORMAL: <5.7% PRE-DIABETES: 5.7 - 6.4% DIABETES: 6.5% OR GREATER Imelda Otto [employer]ED[employer] SERVICE TECHNICIAN CHEMISTRY ORDERABLES Thea l Result [facility] CLIA# [id number] [address] [facility] [place] [address] * (ABNORMAL) LIPID PANEL (12/27/2024 3:52 AM CDT) CHOLESTEROL 90 <200 mg/dL 12/27/2024 11:23 AM CDT [facility] TRIGLYCERIDE 102 <150 mg/dL 12/27/2024 11:23 AM T [facility] HDL 17(L) 40 - 59 mg/dL 12/27/2024 11:23 AM T [facility] LDL CALCULATED 53 <100 mg/dL 12/27/2024 11:23 AM T [facility] NON-HDL CHOLESTEROL 73 <130 mg/dL 12/27/2024 11:23 AM T [facility] Blood Venipuncture / Unknown 12/27/2024 3:52 AM CDT 12/27/2024 3:59 AM CDT [facility] - 12/27/2024 11:23 AM CDT TOTAL CHOLESTEROL mg/dL Desirable <200 Borderline high 200-239 High >=240 TRIGLYCERIDES mg/dL Normal <150 Borderline high 150-199 High 200-499 Very high >=500 HDL CHOLESTEROL mg/dL Low <40 Normal 40-59 Desirable >=60 NON HDL CHOLESTEROL mg/dL Optimal <130 Near Optimal 130-159 Borderline High 160-189 Very High >=190 CALCULATED LDL mg/dL LDL <70, OPTIMAL if have Atherosclerotic cardiovascular disease (ASCVD) or intermediate or higher (>7.5%) 10 year risk of ASCVD including most adults with diabetes. LDL <100, Optimal in adult patients with low (<7.5%) 10 year ASCVD risk LDL 100-160, Suboptimal LDL >160, High LDL >190, Very high LDL calculated using the Friedewald equation. ATPIII Guidelines Reference Ranges for Lipid Panels (NCEP/AMA) . Imelda Otto [facility] CHEMISTRY ORDERABLES Thea domingo Result [facility] CLIA# [id number] [address] [facility] [place] [address] * (ABNORMAL) COMPREHENSIVE METABOLIC PANEL (12/27/2024 3:52 AM CDT) SODIUM 141 136 - 145 mmol/L 12/27/2024 4:36 AM T [facility] LABORATORY SERVICES - . [facility] POTASSIUM 4.1 3.5 - 5.0 mmol/L 12/27/2024 4:36 AM T [facility] LABORATORY SERVICES - . [place] CHLORIDE 99 98 - 107 mmol/L 12/27/2024 4:36 AM T [facility] - [facility] [place] CO2 33(H) 22 - 29 mmol/L 12/27/2024 4:36 AM T [facility] - . [place] CALCIUM 8.4(L) 8.6 - 10.2 mg/dL 12/27/2024 4:36 AM CDT [facility] LABORATORY SERVICES - [facility] [place] BUN 12 6 - 20 mg/dL 12/27/2024 4:36 AM T [facility]ORATORY SERVICES - . [facility] CREATININE 1.00(H) 0.51 - 0.95 mg/dL 12/27/2024 4:36 AM T [facility] LABORATORY SERVICES - . [place] GLUCOSE 97 74 - 99 mg/dL 12/27/2024 4:36 AM T [facility] LABORATORY SERVICES - . [facility] TOTAL PROTEIN 6.4(L) 6.7 - 8.6 g/dL 12/27/2024 4:36 AM T [facility]ORATORY SERVICES - . [place] ALBUMIN 3.6 3.5 - 5.2 g/dL 12/27/2024 4:36 AM [facility] BILIRUBIN TOTAL 1.4(H) 0.0 - 1.2 mg/dL 12/27/2024 4:36 AM [facility] ALKALINE PHOSPHATASE 125(H) 35 - 104 U/L 12/27/2024 4:36 AM [facility] AST 100(H) <33 U/L 12/27/2024 4:36 AM [facility] ALT 51(H) <34 U/L 12/27/2024 4:36 AM [facility] GFR >60 >=60 mL/min/1.7 3 sq meter 12/27/2024 4:36 AM [facility] Comment:eGFR calculated with 2020 CKD-EPI equation. Vegetarian diet, extremely high or low muscle mass, and may affect results. Cystatin C with Glomerular Filtration Rate is a suitable alternative for these patients. ANION GAP 9 8 - 16 mmol/L 12/27/2024 4:36 AM [facility] Blood Venipuncture / Unknown 12/27/2024 3:52 AM CDT 12/27/2024 3:59 AM CDT [facility] - 12/27/2024 4:36 AM CDT Samples containing indocyanine green cause interferences on Total and/or Direct Bilirubin and must not be measured. Everardo Matthews MD CHEMISTRY ORDERABLES Final Resu lt [facility] [id number] [facility] [address] [address] * (ABNORMAL) DRUG SCREEN, URINE (12/27/2024 12:53 AM CDT) [facility] AMPHETAMINE QUAL, URINE Negative Negative 12/27/2024 1:56 AM [facility] BARBITURATE QUAL, URINE Negative Negative 12/27/2024 1:56 AM [facility] BENZODIAZEPINE QUAL, URINE Negative Negative 12/27/2024 1:56 AM [facility] COCAINE QUAL URINE Negative Negative 2024 1:56 AM [facility] OPIATE QUAL, URINE Negative Negative 2024 1:56 AM [facility] CANNABINOIDS QUAL, URINE Negative Negative 12/27/2024 1:56 AM [facility] PCP QUAL, URINE Negative Negative 1:56 AM [facility] OXYCODONE QUAL, URINE Negative Negative 12/27/2024 1:56 AM [facility] METHADONE QUAL, URINE Negative Negative 12/27/2024 1:56 AM [facility] FENTANYL QUAL, URINE Negative Negative 12/27/2024 1:56 AM [facility] CREATININE, URINE 19.0(L) 29.0 - 226.0 mg/dL 12/27/2024 1:56 AM [facility] Comment:Reference Range vari es with fluid intake and diet. Urine URINE SPECIMEN OBTAINED BY CLEAN CATCH PROCEDURE / Unknown Collection / Unknown 12/27/2024 12:53 AM T 12/27/2024 1:06 AM [facility] - 12/27/2024 1:56 AM [facility] This test is a qualitative screen. The presumptive positive results should not be used for legal purposes. If confirmation of results is desired, the lab must be contacted without delay. Drug Ref. Range Screening Threshold Amphetamines Negative 500 ng/mL Barbiturates Negative 200 ng/mL Benzodiazepines Negative 100 ng/mL Cannabinoids Negative 50 ng/mL Cocaine Negative 150 ng/mL Methadone Negative 300 ng/mL Opiates Negative 300 ng/mL Oxycodone Negative 100 ng/mL Phencyclidine Negative 25 ng/mL Fentanyl Negative 5 ng/mL Pallavi Flynn MD URINE ORDERABLES Fin al Result [facility]# [id number] [address] [place] [address] from Last [address] [place] [address] [address] [place] [address] HEALTH PLAN MEDICAID RX [employer] Commercial RX [employer] Commercial Advance Directives For more information, please contact: [phone] * Full Code (Latest Code Status on File) Date Activated Date Inactivated Comments 12/27/2024 12:24 AM 01/03/2025 8:38 PM
--- OUTSIDE RECORDS SUMMARY | 2025-01-11 12:00 | XMS_ITS | Clinical Summary ---
Author Organization [facility] Address [address] [place] [id number] Care Team Providers Care Vending Machine Refiller Name Role Phone None, Provider MD Primary Care Provider Unavaila ble Allergies No known active allergies Social History Tobacco Use Types Packs/Day Years Used Date Smoking Tobacco: Never Assessed Comments Unknown Sex and Gender Information Value Date Recorded Sex Assigned at Female 08/15/2024 3:34 PM [employer] Legal Sex Female 1:55 PM [employer] Gender Identity Not on file Sexual Orientation Not on file Last Filed Vital Signs Vital Sign Reading Time Taken Comments Blood Pressure 140/109 08/15/2024 2:00 PM [employer] Pulse 61 08/15/2024 2:00 PM [employer] Temperature 36.8 C (98.2 F) 08/15/2024 2:00 PM [employer] Respiratory Rate 18 08/15/2024 2:00 PM [employer] Oxygen Saturation 94% 08/15/2024 2:00 PM [employer] Inhaled Oxygen Concentration - - Weight 165.6 kg (365 lb) 08/15/2024 2:00 PM [employer] Height 175.3 cm (5' 9) 08/15/2024 2:00 PM [employer] Body Mass Index 53.9 08/15/2024 2:00 PM [employer] Plan of Treatment Health Maintenance Due Date [...] patient's age to complete this topic [place] [place] [address] Care Teams Vending Machine Refiller Relationship Specialty Start Date End Date None, Provider, PCP - General UNKNOWN PHYSICIAN SPECIALTY 08/15/24
[2025-01-11 12:11] LABS: Hematocrit 48.0 % (35.0-49.0); Hemoglobin 12.6 g/dL (12.0-15.0); Immature Granulocyte Percent A 0.4 % (0.0-0.0); Immature Platelet Fraction Pct 11.0 % (1.0-7.0); Lymphocytes Absolute Auto 1.25 K/mm3 (1.10-4.50); Mean Corpuscular HGB Conc 26.3 g/dL (32-36); Mean Corpuscular Hemoglobin 21.1 pg (27.0-31.0); Mean Corpuscular Volume 80.4 fL (78.0-102.0); Nucleated Red Blood Cells Absolute Auto 0.00 K/mm3 (0.00-0.00); Nucleated Red Blood Cells Perc 0.0 % (0-0.0); Platelet Count Result 222 K/mm3 (150-420); Red Blood Count 5.97 M/mm3 (4.20-5.40); White Blood Count 7.0 K/mm3 (4.8-10.8)
[2025-01-11 12:19] LABS: Hemoglobin A1C 5.8 % (<5.7)
[2025-01-11 13:09] LABS: Thyroid Stimulating Hormone Reflex 3.430 uIU/mL (0.465-4.68)
[2025-01-11 14:32] LABS: Alanine Aminotransferase 18 U/L (6-35); Albumin Level 4.6 g/dL (3.5-5.1); Alkaline Phosphatase 118 U/L (38-126); Anion Gap 7 mmol/L (4-12); Aspartate Amino Transferase 34 U/L (14-36); Bilirubin,Total 1.2 mg/dL (0.2-1.3); Blood Urea Nitrogen 16 mg/dL (7-17); Calcium 8.3 mg/dL (8.4-10.2); Carbon Dioxide 33 mmol/L (22-30); Chloride 99 mmol/L (98-107); Cholesterol 173 mg/dL (0-200); Estimated Glomerular Filt Rate > 60; Glucose 103 mg/dL (65-110); HDL Direct 28 mg/dL; Osmolality Calculated 289 mOsm/kg (285-295); Potassium 4.5 mmol/L (3.4-5.0); Sodium 139 mmol/L (137-145); Total Protein 7.6 g/dL (6.3-8.2); Triglycerides 187 mg/dL (<150)
[2025-01-11 15:40] LABS: Vitamin B12 430.0 pg/mL (239-931)
== END 2025-01-11 11:57 | disposition home or self-care (01) ==
LOC: CHSLAB 11:58
PROVIDERS: PCP Family Medicine; Visit Provider Family Medicine
DX: I50.30 Unspecified diastolic (congestive) heart failure (principal); E03.9 Hypothyroidism, unspecified; E11.9 Type 2 diabetes mellitus without complications; E53.8 Deficiency of other specified B group vitamins
CPT/HCPCS: 36415; 80053; 80061; 82607; 82746; 83036; 84443; 85025; 85055